=== PATIENT | male | born 1935 | race Caucasian/White ===

== ENCOUNTER 2018-06-11 20:33 | Emergency (ER) | payer MEDICARE, OTHER ==
[2018-06-11 21:26] LABS: BASOPHILS % (AUTO) 0.6 % (0.0-5.0); EOSINOPHILS % (AUTO) 0.4 % (0.0-8.0); HEMATOCRIT 35.6 % (42-54); LYMPHOCYTES % (AUTO) 14.1 % (21.0-51.0); MEAN CORPUSCULAR HGB CONC 34.6 g/dL (32.0-36.0); MEAN CORPUSCULAR VOLUME 95.3 fL (79-99); MONOCYTES % (AUTO) 6.7 % (3.0-13.0); NEUTROPHILS % (AUTO) 78.2 % (40.0-77.0); NUCLEATED RED BLOOD CELLS 0.1 % (0.0-0.19); PLATELET COUNT (AUTO) 170 K/uL (130-400); RED BLOOD CELL COUNT(AUTO) 3.73 MIL/uL (4.50-6.20); RED CELL DISTRIBUTION WIDTH 14.7 % (11.0-15.5); WHITE BLOOD COUNT (AUTO) 9.8 K/uL (4.8-10.8)
[2018-06-11 21:33] LABS: CREATININE 1.1 mg/dL (0.5-1.5); POTASSIUM 3.6 mmol/L (3.5-5.1)
[2018-06-11 21:37] LABS: INR 0.99 (0.85-1.15); PARTIAL THROMBOPLASTIN TIME 27.4 SEC (26.3-35.5); PROTHROMBIN TIME 10.4 SEC (9.6-11.6)
[2018-06-11 21:38] LABS: ALBUMIN 3.6 g/dL (3.5-5.0); BILIRUBIN,TOTAL 0.4 mg/dL (0.2-1.0)
[2018-06-11 22:15] LABS: APPEARANCE,URINE TURBID (CLEAR); BILIRUBIN,URINE MODERATE (NEGATIVE); COLOR,URINE RED (YELLOW); GLUCOSE, URINE (UA) 500 mg/dL (NEGATIVE); KETONES,URINE 15 mg/dL (NEGATIVE); LEUKOCYTE ESTERASE ,URINE MODERATE (NEGATIVE); NITRATE,URINE POSITIVE (NEGATIVE); OCCULT BLOOD,URINE LARGE (NEGATIVE); PH,URINE 6.5 (5.0-8.0); PROTEIN,URINE >=300 (NEGATIVE)
[2018-06-11 22:23] LABS: RBC,URINE >100 /HPF (0-1)
[2018-06-11 22:26] LABS: BACTERIA,URINE Moderate /HPF (None Seen); SQUAMOUS EPITHELIAL CELL,UR 0-2 /HPF (0-2)
[2018-06-11] MEDS ORDERED: LEVOFLOXACIN 500 MG TABLET ONE (22:41)
== END 2018-06-11 23:10 | disposition home or self-care (01) ==
LOC: EDH 20:33
DX: N39.0 Urinary tract infection, site not specified (principal); R33.9 Retention of urine, unspecified; R31.9 Hematuria, unspecified; I10 Essential (primary) hypertension; E11.9 Type 2 diabetes mellitus without complications; I25.10 Atherosclerotic heart disease of native coronary artery without angina pectoris; Z98.890 Other specified postprocedural states
CPT/HCPCS: 36415; 80053; 81001; 85025; 85610; 85730; 87088

== ENCOUNTER 2018-06-12 23:10 | Emergency (ER) | payer MEDICARE, OTHER ==
[2018-06-14] MEDS ORDERED: METF-446 PO (22:00)
[2018-06-14] MEDS ORDERED: SIMV80TA7 PO (22:00)
[2018-06-14] MEDS ORDERED: SAXA5TAB PO (22:00)
[2018-06-14] MEDS ORDERED: TAMS-1 PO (22:00)
[2018-06-14] MEDS ORDERED: DOXA8TAB81 PO (22:00)
[2018-06-14] MEDS ORDERED: AMLO5TAB7 PO (22:00)
[2018-06-14] MEDS ORDERED: ACAR25TA2 PO (22:00)
[2018-06-14] MEDS ORDERED: ALLO100T PO (22:00)
== END 2018-06-13 02:29 | disposition home or self-care (01) ==
LOC: EDH 23:10
DX: T83.091A Other mechanical complication of indwelling urethral catheter, initial encounter (principal); I25.10 Atherosclerotic heart disease of native coronary artery without angina pectoris; E11.9 Type 2 diabetes mellitus without complications; I10 Essential (primary) hypertension; Z98.890 Other specified postprocedural states
CPT/HCPCS: 51701

== ENCOUNTER 2018-06-13 19:54 | Emergency (ER) | payer MEDICARE, OTHER ==
[2018-06-14] MEDS ORDERED: METF-446 PO (22:00)
[2018-06-14] MEDS ORDERED: SIMV80TA7 PO (22:00)
[2018-06-14] MEDS ORDERED: AMLO5TAB7 PO (22:00)
[2018-06-14] MEDS ORDERED: ALLO100T PO (22:00)
[2018-06-14] MEDS ORDERED: SAXA5TAB PO (22:00)
[2018-06-14] MEDS ORDERED: TAMS-1 PO (22:00)
[2018-06-14] MEDS ORDERED: DOXA8TAB81 PO (22:00)
[2018-06-14] MEDS ORDERED: ACAR25TA2 PO (22:00)
== END 2018-06-13 21:18 | disposition home or self-care (01) ==
LOC: EDH 19:54
DX: T83.091A Other mechanical complication of indwelling urethral catheter, initial encounter (principal); R31.9 Hematuria, unspecified; I10 Essential (primary) hypertension; I25.10 Atherosclerotic heart disease of native coronary artery without angina pectoris; E11.9 Type 2 diabetes mellitus without complications; Z98.890 Other specified postprocedural states

== ENCOUNTER 2018-06-14 10:48 | Inpatient (IN) | payer OTHER ==
[~2018-06-14] VITALS: Ht 162.6 cm; Wt 78.5 kg
[2018-06-14 11:23] LABS: BASOPHILS % (AUTO) 0.7 % (0.0-5.0); EOSINOPHILS % (AUTO) 2.1 % (0.0-8.0); HEMATOCRIT 35.5 % (42-54); LYMPHOCYTES % (AUTO) 17.4 % (21.0-51.0); MEAN CORPUSCULAR HEMOGLOBIN 33.3 pg (27.0-33.0); MEAN CORPUSCULAR VOLUME 95.2 fL (79-99); NEUTROPHILS % (AUTO) 71.8 % (40.0-77.0); PLATELET COUNT (AUTO) 181 K/uL (130-400); RED BLOOD CELL COUNT(AUTO) 3.73 MIL/uL (4.50-6.20); RED CELL DISTRIBUTION WIDTH 14.5 % (11.0-15.5); WHITE BLOOD COUNT (AUTO) 8.1 K/uL (4.8-10.8)
[2018-06-14 11:33] LABS: CREATININE 1.4 mg/dL (0.5-1.5); POTASSIUM 3.7 mmol/L (3.5-5.1)
[2018-06-14 11:39] LABS: ALBUMIN 3.5 g/dL (3.5-5.0); BILIRUBIN,TOTAL 0.5 mg/dL (0.2-1.0); TOTAL PROTEIN, SERUM 7.1 g/dL (6.0-8.3)
[2018-06-14 12:23] LABS: INR 0.96 (0.85-1.15); PARTIAL THROMBOPLASTIN TIME 28.7 SEC (26.3-35.5); PROTHROMBIN TIME 10.1 SEC (9.6-11.6)
[2018-06-14 12:25] LABS: APPEARANCE,URINE Turbid (CLEAR); BILIRUBIN,URINE Small (NEGATIVE); COLOR,URINE Red (YELLOW); GLUCOSE, URINE (UA) Negative (NEGATIVE); KETONES,URINE Negative (NEGATIVE); LEUKOCYTE ESTERASE ,URINE Moderate (NEGATIVE); NITRATE,URINE Negative (NEGATIVE); OCCULT BLOOD,URINE Large (NEGATIVE); PROTEIN,URINE POS 2+ (NEGATIVE); UROBILINOGEN,URINE 0.2 mg/dL (0.2-1.0)
[2018-06-14 12:38] LABS: BACTERIA,URINE Rare /HPF (None Seen); RBC,URINE TNTC /HPF (0-1); SQUAMOUS EPITHELIAL CELL,UR Rare /HPF (0-2); WBC,URINE 0-1 /HPF (0-1)
[2018-06-14] MEDS: SODIUM CHLORIDE 0.9% 1000ML 1,000 ML IV SCH ×2 (14:46→15:15)
[2018-06-14] MEDS ORDERED: CEFTRIAXONE SODIUM 1 GM IV SCH (15:00)
[2018-06-14] MEDS ORDERED: DEXTROSE 50%-WATER 50 ML DISP.SYRIN IV PRN (15:00)
[2018-06-14] MEDS ORDERED: GLUCAGON 1MG KIT 1 MG ML IM PRN (15:00)
[2018-06-14] MEDS ORDERED: ONDANSETRON HCL 4 MG/2 ML VIAL IV PRN (15:00)
[2018-06-14] MEDS ORDERED: ACETAMINOPHEN 325 MG TAB PO PRN (15:00)
[2018-06-14] MEDS ORDERED: SODIUM CHLORIDE 0.9% 1000ML 1,000 ML IV ONE (15:48)
[2018-06-14] MEDS ORDERED: LEVOFLOXACIN 500 MG/D5W 100 ML 100 ML ONE (15:48)
[2018-06-14] MEDS: INSULIN HUMULIN R 100 UNIT/ML 3ML SQ SCH ×2 (16:30→21:00)
[2018-06-14] MEDS ORDERED: LEVOFLOXACIN 500 MG TABLET PO ONE (18:00)
[2018-06-14 18:50] VITALS: BP 143/72
[2018-06-14] MEDS ORDERED: GENTAMICIN 80 MG/NS 100 ML PB 100 ML IV PRN (20:15)
[2018-06-14] MEDS ORDERED: SAXA5TAB PO (22:00)
[2018-06-14] MEDS ORDERED: ACAR25TA2 PO (22:00)
[2018-06-14] MEDS ORDERED: AMLO5TAB7 PO (22:00)
[2018-06-14] MEDS ORDERED: TAMS-1 PO (22:00)
[2018-06-14] MEDS ORDERED: ALLO100T PO (22:00)
[2018-06-14] MEDS ORDERED: METF-446 PO (22:00)
[2018-06-14] MEDS ORDERED: SIMV80TA7 PO (22:00)
[2018-06-14] MEDS ORDERED: DOXA8TAB81 PO (22:00)
[2018-06-14] MEDS ORDERED: LACTULOSE 20 GM/30 ML UDCUP ONE (22:01)
[2018-06-15] VITALS (24 sets, daily range): BP systolic 116–195; BP diastolic 55–99
[2018-06-15] MEDS: SODIUM CHLORIDE 0.9% 1000ML 1,000 ML IV SCH ×7 (04:30→21:44)
[2018-06-15 05:31] LABS: BASOPHILS % (AUTO) 0.5 % (0.0-5.0); EOSINOPHILS % (AUTO) 2.9 % (0.0-8.0); HEMATOCRIT 33.4 % (42-54); LYMPHOCYTES % (AUTO) 23.1 % (21.0-51.0); MEAN CORPUSCULAR HGB CONC 34.8 g/dL (32.0-36.0); MONOCYTES % (AUTO) 9.4 % (3.0-13.0); NEUTROPHILS % (AUTO) 64.1 % (40.0-77.0); PLATELET COUNT (AUTO) 154 K/uL (130-400); RED BLOOD CELL COUNT(AUTO) 3.51 MIL/uL (4.50-6.20); WHITE BLOOD COUNT (AUTO) 8.8 K/uL (4.8-10.8)
[2018-06-15 05:41] LABS: CREATININE 1.2 mg/dL (0.5-1.5); POTASSIUM 4.2 mmol/L (3.5-5.1)
[2018-06-15] MEDS: ACARBOSE 25 MG TABLET PO SCH ×3 (07:30→16:40)
[2018-06-15] MEDS: INSULIN HUMULIN R 100 UNIT/ML 3ML SQ SCH ×4 (07:30→21:49)
[2018-06-15] MEDS: METFORMIN HCL 500 MG TABLET PO SCH ×2 (08:00→16:40)
[2018-06-15] MEDS: AMLODIPINE BESYLATE 5 MG TAB PO SCH (09:00)
[2018-06-15] MEDS: SAXAGLIPTIN HCL 5 MG PO SCH (09:00)
[2018-06-15] MEDS: TAMSULOSIN HCL 0.4 MG CAP.ER.24H PO SCH (09:00)
[2018-06-15] MEDS: MORPHINE SULFATE 2 MG/ML 1ML SYG IVP PRN ×2 (12:02→17:16)
[2018-06-15] MEDS ORDERED: IOHEXOL-350 50ML VIAL IV ONE (13:30)
[2018-06-15] MEDS ORDERED: LIDOCAINE HCL 2% JELLY 5 ML ONE (13:39)
[2018-06-15] MEDS ORDERED: LIDOCAINE HCL MPF 1% 5ML VIAL ONE (13:39)
[2018-06-15] MEDS ORDERED: PROPOFOL 10 MG/ML 20ML VIAL IV ONE (13:39)
[2018-06-15] MEDS ORDERED: FENTANYL CITRATE PF 50 MCG/1 ML 5ML AMP IV ONE (13:40)
[2018-06-15] MEDS ORDERED: LEVOFLOXACIN 500 MG/D5W 100 ML 100 ML ONE (14:02)
[2018-06-15] MEDS ORDERED: OPIUM/BELLADONNA ALKALOIDS 1 EACH SUPP.RECT RC ONE (14:58)
[2018-06-15] MEDS ORDERED: MEPERIDINE-PF 25 MG/ML SYG ONE ×2 (15:10→15:22)
[2018-06-15] MEDS ORDERED: HYDRALAZINE HCL 20 MG/ML VIAL ONE (15:23)
[2018-06-15] MEDS: LEVOFLOXACIN 500 MG TABLET PO SCH (16:39)
[2018-06-15] MEDS: FAMOTIDINE 20MG TAB 20 MG TAB PO SCH (16:40)
[2018-06-15] MEDS: DOXAZOSIN MESYLATE 2 MG TABLET PO SCH (16:41)
[2018-06-15] MEDS ORDERED: PHENAZOPYRIDINE HCL 200 MG TABLET PO SCH (17:00)
[2018-06-15] MEDS: ATORVASTATIN CALCIUM 40 MG TABLET PO SCH (21:48)
[2018-06-15] MEDS: ALLOPURINOL 100 MG TABLET PO SCH (21:48)
[2018-06-15] MEDS: ACETAMINOPHEN-CODEINE 300/30MG TAB PO PRN (23:00)
[2018-06-16] VITALS (8 sets, daily range): BP systolic 119–154; BP diastolic 46–64
[2018-06-16 05:53] LABS: BASOPHILS % (AUTO) 0.4 % (0.0-5.0); EOSINOPHILS % (AUTO) 4.2 % (0.0-8.0); HEMATOCRIT 30.7 % (42-54); LYMPHOCYTES % (AUTO) 21.3 % (21.0-51.0); MEAN CORPUSCULAR HEMOGLOBIN 34.1 pg (27.0-33.0); MEAN CORPUSCULAR HGB CONC 35.8 g/dL (32.0-36.0); MEAN CORPUSCULAR VOLUME 95.3 fL (79-99); MONOCYTES % (AUTO) 9.4 % (3.0-13.0); NEUTROPHILS % (AUTO) 64.7 % (40.0-77.0); PLATELET COUNT (AUTO) 163 K/uL (130-400); RED BLOOD CELL COUNT(AUTO) 3.22 MIL/uL (4.50-6.20); RED CELL DISTRIBUTION WIDTH 14.7 % (11.0-15.5); WHITE BLOOD COUNT (AUTO) 8.4 K/uL (4.8-10.8)
[2018-06-16 06:01] LABS: CREATININE 1.2 mg/dL (0.5-1.5); POTASSIUM 3.6 mmol/L (3.5-5.1)
[2018-06-16] MEDS: SODIUM CHLORIDE 0.9% 1000ML 1,000 ML IV SCH ×3 (06:21→17:15)
[2018-06-16] MEDS: ACETAMINOPHEN-CODEINE 300/30MG TAB PO PRN ×2 (06:21→19:46)
[2018-06-16] MEDS: INSULIN HUMULIN R 100 UNIT/ML 3ML SQ SCH ×4 (07:05→21:00)
[2018-06-16] MEDS: METFORMIN HCL 500 MG TABLET PO SCH ×2 (08:46→16:50)
[2018-06-16] MEDS: TAMSULOSIN HCL 0.4 MG CAP.ER.24H PO SCH (08:46)
[2018-06-16] MEDS: DOXAZOSIN MESYLATE 2 MG TABLET PO SCH (08:46)
[2018-06-16] MEDS: ACARBOSE 25 MG TABLET PO SCH ×3 (08:46→16:50)
[2018-06-16] MEDS: AMLODIPINE BESYLATE 5 MG TAB PO SCH (08:46)
[2018-06-16] MEDS: OXYBUTYNIN 5 MG TAB.SR.24H PO SCH (08:47)
[2018-06-16] MEDS: FAMOTIDINE 20MG TAB 20 MG TAB PO SCH (08:47)
[2018-06-16] MEDS: SAXAGLIPTIN HCL 5 MG PO SCH (08:49)
[2018-06-16] MEDS: LEVOFLOXACIN 500 MG TABLET PO SCH (16:49)
[2018-06-16] MEDS: ATORVASTATIN CALCIUM 40 MG TABLET PO SCH (22:01)
[2018-06-16] MEDS: ALLOPURINOL 100 MG TABLET PO SCH (22:01)
[2018-06-17] VITALS: BP 157/68
[2018-06-17] MEDS: MORPHINE SULFATE 2 MG/ML 1ML SYG IVP PRN ×2 (00:50→12:49)
[2018-06-17] MEDS: SODIUM CHLORIDE 0.9% 1000ML 1,000 ML IV SCH ×6 (02:18→22:26)
[2018-06-17] MEDS: ACETAMINOPHEN-CODEINE 300/30MG TAB PO PRN ×5 (03:17→23:28)
[2018-06-17 04:00] VITALS: BP 163/68
[2018-06-17 05:55] LABS: BASOPHILS % (AUTO) 0.5 % (0.0-5.0); EOSINOPHILS % (AUTO) 4.8 % (0.0-8.0); HEMATOCRIT 31.3 % (42-54); LYMPHOCYTES % (AUTO) 19.5 % (21.0-51.0); MEAN CORPUSCULAR HEMOGLOBIN 33.2 pg (27.0-33.0); MEAN CORPUSCULAR HGB CONC 34.9 g/dL (32.0-36.0); MONOCYTES % (AUTO) 7.8 % (3.0-13.0); NEUTROPHILS % (AUTO) 67.4 % (40.0-77.0); PLATELET COUNT (AUTO) 137 K/uL (130-400); RED CELL DISTRIBUTION WIDTH 14.7 % (11.0-15.5)
[2018-06-17 06:15] LABS: ALBUMIN 2.5 g/dL (3.5-5.0); BILIRUBIN,TOTAL 0.4 mg/dL (0.2-1.0); CREATININE 1.1 mg/dL (0.5-1.5); POTASSIUM 3.5 mmol/L (3.5-5.1); TOTAL PROTEIN, SERUM 5.6 g/dL (6.0-8.3)
[2018-06-17] MEDS: INSULIN HUMULIN R 100 UNIT/ML 3ML SQ SCH ×4 (06:54→21:00)
[2018-06-17] MEDS: ACARBOSE 25 MG TABLET PO SCH ×3 (07:01→16:56)
[2018-06-17 08:00] VITALS: BP 134/58
[2018-06-17] MEDS: TAMSULOSIN HCL 0.4 MG CAP.ER.24H PO SCH (08:03)
[2018-06-17] MEDS: METFORMIN HCL 500 MG TABLET PO SCH ×2 (08:03→16:56)
[2018-06-17] MEDS: OXYBUTYNIN 5 MG TAB.SR.24H PO SCH (08:03)
[2018-06-17] MEDS: DOXAZOSIN MESYLATE 2 MG TABLET PO SCH (08:03)
[2018-06-17] MEDS: FAMOTIDINE 20MG TAB 20 MG TAB PO SCH (08:03)
[2018-06-17] MEDS: AMLODIPINE BESYLATE 5 MG TAB PO SCH (08:06)
[2018-06-17] MEDS: SAXAGLIPTIN HCL 5 MG PO SCH (08:07)
[2018-06-17 11:00] VITALS: BP 141/59
[2018-06-17 16:00] VITALS: BP 136/57
[2018-06-17] MEDS: LEVOFLOXACIN 500 MG TABLET PO SCH (16:04)
[2018-06-17] MEDS: ATORVASTATIN CALCIUM 40 MG TABLET PO SCH (19:37)
[2018-06-17] MEDS: ALLOPURINOL 100 MG TABLET PO SCH (19:37)
[2018-06-17 20:35] VITALS: BP 132/51
[2018-06-17] MEDS: LACTULOSE 20 GM/30 ML UDCUP PO PRN (23:28)
[2018-06-18] VITALS (7 sets, daily range): BP systolic 128–158; BP diastolic 49–71
[2018-06-18] MEDS: INSULIN HUMULIN R 100 UNIT/ML 3ML SQ SCH ×3 (06:06→20:36)
[2018-06-18 06:13] LABS: BASOPHILS % (AUTO) 0.5 % (0.0-5.0); EOSINOPHILS % (AUTO) 5.9 % (0.0-8.0); HEMATOCRIT 30.7 % (42-54); LYMPHOCYTES % (AUTO) 20.8 % (21.0-51.0); MEAN CORPUSCULAR HEMOGLOBIN 33.8 pg (27.0-33.0); MEAN CORPUSCULAR HGB CONC 35.6 g/dL (32.0-36.0); MONOCYTES % (AUTO) 8.3 % (3.0-13.0); NEUTROPHILS % (AUTO) 64.5 % (40.0-77.0); PLATELET COUNT (AUTO) 163 K/uL (130-400); RED BLOOD CELL COUNT(AUTO) 3.23 MIL/uL (4.50-6.20); RED CELL DISTRIBUTION WIDTH 14.8 % (11.0-15.5); WHITE BLOOD COUNT (AUTO) 8.9 K/uL (4.8-10.8)
[2018-06-18 06:26] LABS: CREATININE 1.1 mg/dL (0.5-1.5); POTASSIUM 3.6 mmol/L (3.5-5.1)
[2018-06-18] MEDS: ACARBOSE 25 MG TABLET PO SCH ×3 (07:05→17:56)
[2018-06-18] MEDS: FAMOTIDINE 20MG TAB 20 MG TAB PO SCH (07:14)
[2018-06-18] MEDS: AMLODIPINE BESYLATE 5 MG TAB PO SCH (07:14)
[2018-06-18] MEDS: TAMSULOSIN HCL 0.4 MG CAP.ER.24H PO SCH (07:15)
[2018-06-18] MEDS: ACETAMINOPHEN-CODEINE 300/30MG TAB PO PRN ×3 (07:15→20:47)
[2018-06-18] MEDS: DOXAZOSIN MESYLATE 2 MG TABLET PO SCH (07:15)
[2018-06-18] MEDS: OXYBUTYNIN 5 MG TAB.SR.24H PO SCH (07:15)
[2018-06-18] MEDS: METFORMIN HCL 500 MG TABLET PO SCH ×2 (07:16→17:57)
[2018-06-18] MEDS: SAXAGLIPTIN HCL 5 MG PO SCH (09:00)
[2018-06-18] MEDS: MORPHINE SULFATE 2 MG/ML 1ML SYG IVP PRN (09:54)
[2018-06-18] MEDS: SODIUM CHLORIDE 0.9% 1000ML 1,000 ML IV SCH ×2 (14:28→17:58)
[2018-06-18] MEDS: LEVOFLOXACIN 500 MG TABLET PO SCH (17:58)
[2018-06-18] MEDS: ALLOPURINOL 100 MG TABLET PO SCH (20:38)
[2018-06-18] MEDS: ATORVASTATIN CALCIUM 40 MG TABLET PO SCH (20:38)
[2018-06-19 03:00] VITALS: BP 160/63
[2018-06-19] MEDS: SODIUM CHLORIDE 0.9% 1000ML 1,000 ML IV SCH ×3 (03:57→14:46)
[2018-06-19] MEDS: ACARBOSE 25 MG TABLET PO SCH ×3 (06:42→17:28)
[2018-06-19] MEDS: INSULIN HUMULIN R 100 UNIT/ML 3ML SQ SCH ×4 (06:43→22:02)
[2018-06-19 08:00] VITALS: BP_SYST 149; BP_SYST 168; BP_DIAS 64; BP_DIAS 67
[2018-06-19] MEDS: SAXAGLIPTIN HCL 5 MG PO SCH (08:11)
[2018-06-19] MEDS: FAMOTIDINE 20MG TAB 20 MG TAB PO SCH (09:26)
[2018-06-19] MEDS: HYDROCODONE/ACETAMINOPHEN 5/325 MG TAB PO PRN ×2 (09:27→17:28)
[2018-06-19] MEDS: OXYBUTYNIN 5 MG TAB.SR.24H PO SCH (09:28)
[2018-06-19] MEDS: AMLODIPINE BESYLATE 5 MG TAB PO SCH (09:28)
[2018-06-19] MEDS: DOXAZOSIN MESYLATE 2 MG TABLET PO SCH (09:28)
[2018-06-19] MEDS: TAMSULOSIN HCL 0.4 MG CAP.ER.24H PO SCH (09:28)
[2018-06-19] MEDS: METFORMIN HCL 500 MG TABLET PO SCH ×2 (09:44→17:27)
[2018-06-19 11:49] VITALS: BP 147/61
[2018-06-19 16:47] VITALS: BP 149/61
[2018-06-19] MEDS: LEVOFLOXACIN 500 MG TABLET PO SCH (17:27)
[2018-06-19 19:00] VITALS: BP 141/59
[2018-06-19] MEDS: ATORVASTATIN CALCIUM 40 MG TABLET PO SCH (21:39)
[2018-06-19] MEDS: ALLOPURINOL 100 MG TABLET PO SCH (21:39)
[2018-06-19] MEDS: ACETAMINOPHEN-CODEINE 300/30MG TAB PO PRN (22:14)
[2018-06-19] MEDS: MORPHINE SULFATE 2 MG/ML 1ML SYG IVP PRN (22:55)
[2018-06-19 23:00] VITALS: BP 152/57
[2018-06-20] MEDS ORDERED: KETOROLAC TROMETHAMINE 30MG/ML IV PRN
[2018-06-20 03:00] VITALS: BP 142/55
[2018-06-20 05:35] LABS: HEMATOCRIT 29.5 % (42-54); MEAN CORPUSCULAR HEMOGLOBIN 33.1 pg (27.0-33.0); MEAN CORPUSCULAR HGB CONC 35.2 g/dL (32.0-36.0); MEAN CORPUSCULAR VOLUME 94.1 fL (79-99); PLATELET COUNT (AUTO) 182 K/uL (130-400); RED BLOOD CELL COUNT(AUTO) 3.14 MIL/uL (4.50-6.20); RED CELL DISTRIBUTION WIDTH 14.3 % (11.0-15.5); WHITE BLOOD COUNT (AUTO) 8.2 K/uL (4.8-10.8)
[2018-06-20 05:45] LABS: CREATININE 1.2 mg/dL (0.5-1.5); POTASSIUM 3.2 mmol/L (3.5-5.1)
[2018-06-20 05:46] LABS: INR 1.02 (0.85-1.15); PROTHROMBIN TIME 10.7 SEC (9.6-11.6)
[2018-06-20] MEDS: ACARBOSE 25 MG TABLET PO SCH ×3 (06:35→17:15)
[2018-06-20] MEDS: INSULIN HUMULIN R 100 UNIT/ML 3ML SQ SCH ×4 (06:36→21:00)
[2018-06-20 07:30] VITALS: BP 135/61
[2018-06-20] MEDS: DOXAZOSIN MESYLATE 2 MG TABLET PO SCH (08:46)
[2018-06-20] MEDS: OXYBUTYNIN 5 MG TAB.SR.24H PO SCH (08:46)
[2018-06-20] MEDS: AMLODIPINE BESYLATE 5 MG TAB PO SCH (08:46)
[2018-06-20] MEDS: SODIUM CHLORIDE 0.9% 1000ML 1,000 ML IV SCH ×2 (08:46→10:46)
[2018-06-20] MEDS: TAMSULOSIN HCL 0.4 MG CAP.ER.24H PO SCH (08:46)
[2018-06-20] MEDS: FAMOTIDINE 20MG TAB 20 MG TAB PO SCH (08:46)
[2018-06-20] MEDS: METFORMIN HCL 500 MG TABLET PO SCH ×2 (08:46→17:15)
[2018-06-20] MEDS: SAXAGLIPTIN HCL 5 MG PO SCH (09:00)
[2018-06-20 11:00] VITALS: BP 143/50
[2018-06-20] MEDS: LACTULOSE 20 GM/30 ML UDCUP PO PRN (12:28)
[2018-06-20 16:00] VITALS: BP 137/57
[2018-06-20] MEDS: LEVOFLOXACIN 500 MG TABLET PO SCH (16:09)
[2018-06-20 19:35] VITALS: BP 146/59
[2018-06-20 19:38] VITALS: BP 146/59
[2018-06-20] MEDS: ALLOPURINOL 100 MG TABLET PO SCH (21:11)
[2018-06-20] MEDS: FERROUS SULFATE 325 MG TABLET.DR PO SCH (21:12)
[2018-06-20] MEDS: ATORVASTATIN CALCIUM 40 MG TABLET PO SCH (21:12)
[2018-06-21 00:38] VITALS: BP 164/71
[2018-06-21] MEDS: ACETAMINOPHEN-CODEINE 300/30MG TAB PO PRN ×2 (00:41→12:57)
[2018-06-21 04:40] VITALS: BP 156/65
[2018-06-21 05:43] LABS: HEMATOCRIT 29.9 % (42-54); MEAN CORPUSCULAR HGB CONC 36.4 g/dL (32.0-36.0); MEAN CORPUSCULAR VOLUME 93.4 fL (79-99); PLATELET COUNT (AUTO) 221 K/uL (130-400); RED BLOOD CELL COUNT(AUTO) 3.21 MIL/uL (4.50-6.20); RED CELL DISTRIBUTION WIDTH 14.3 % (11.0-15.5); WHITE BLOOD COUNT (AUTO) 7.7 K/uL (4.8-10.8)
[2018-06-21 06:25] LABS: CREATININE 1.1 mg/dL (0.5-1.5); POTASSIUM 3.2 mmol/L (3.5-5.1)
[2018-06-21] MEDS: ACARBOSE 25 MG TABLET PO SCH ×3 (06:39→16:15)
[2018-06-21] MEDS: INSULIN HUMULIN R 100 UNIT/ML 3ML SQ SCH ×3 (06:39→16:10)
[2018-06-21 07:30] VITALS: BP 163/68
[2018-06-21] MEDS: TAMSULOSIN HCL 0.4 MG CAP.ER.24H PO SCH (08:41)
[2018-06-21] MEDS: FAMOTIDINE 20MG TAB 20 MG TAB PO SCH (08:41)
[2018-06-21] MEDS: AMLODIPINE BESYLATE 5 MG TAB PO SCH (08:41)
[2018-06-21] MEDS: OXYBUTYNIN 5 MG TAB.SR.24H PO SCH (08:41)
[2018-06-21] MEDS: FERROUS SULFATE 325 MG TABLET.DR PO SCH (08:41)
[2018-06-21] MEDS: DOXAZOSIN MESYLATE 2 MG TABLET PO SCH (08:41)
[2018-06-21] MEDS: METFORMIN HCL 500 MG TABLET PO SCH ×2 (08:41→16:16)
[2018-06-21] MEDS: SAXAGLIPTIN HCL 5 MG PO SCH (08:44)
[2018-06-21 11:00] VITALS: BP 142/51
[2018-06-21] MEDS ORDERED: FERR324T4 PO (11:47)
[2018-06-21 16:00] VITALS: BP 134/59
[2018-06-21] MEDS: LEVOFLOXACIN 500 MG TABLET PO SCH (16:15)
[2018-06-21] MEDS ORDERED: POTASSIUM CHLORIDE 10% ELIXIR 20 MEQ/15 ML UDCUP PO SCH (16:26)
== END 2018-06-21 18:18 | DRG 669 ==
LOC: EDH 10:48 → EDHIP 14:46 → OBSVTOIN 14:46 → 3CH 19:07
PROVIDERS: ADMIT Hospitalist; ATTEND Hospitalist
PROC: BT141ZZ Fluoroscopy of Kidneys, Ureters and Bladder using Low Osmolar Contrast (ICD-10-PCS; 2018-06-15)
PROC: 0TBB8ZX Excision of Bladder, Via Natural or Artificial Opening Endoscopic, Diagnostic (ICD-10-PCS; 2018-06-15)
PROC: 0TBB8ZZ Excision of Bladder, Via Natural or Artificial Opening Endoscopic (ICD-10-PCS; principal; 2018-06-15 14:04)
PROC: 0T5B8ZZ Destruction of Bladder, Via Natural or Artificial Opening Endoscopic (ICD-10-PCS; 2018-06-15 14:04)
PROC: 0TCB8ZZ Extirpation of Matter from Bladder, Via Natural or Artificial Opening Endoscopic (ICD-10-PCS; 2018-06-15 14:04)
DX: D49.4 Neoplasm of unspecified behavior of bladder (principal); N39.0 Urinary tract infection, site not specified; R31.0 Gross hematuria; E11.9 Type 2 diabetes mellitus without complications; I10 Essential (primary) hypertension; R33.9 Retention of urine, unspecified; Z66 Do not resuscitate; I71.4 Abdominal aortic aneurysm, without rupture; K57.90 Diverticulosis of intestine, part unspecified, without perforation or abscess without bleeding; I25.10 Atherosclerotic heart disease of native coronary artery without angina pectoris; K76.89 Other specified diseases of liver; N40.0 Benign prostatic hyperplasia without lower urinary tract symptoms; Z72.0 Tobacco use; Z79.4 Long term (current) use of insulin; Z95.5 Presence of coronary angioplasty implant and graft; Z82.49 Family history of ischemic heart disease and other diseases of the circulatory system; Z88.8 Allergy status to other drugs, medicaments and biological substances
CPT/HCPCS: 36415; 74176; 74420; 80048; 80053; 81001; 82550; 82948; 85025; 85027; 85610; 85730; 88305; 93005; 97039; A4354; C1758; J0360; J1815; J1885; J1956; J2175; J2704; J3010; J3490; J7030; Q9967

== ENCOUNTER → 2019-02-22 | Outpatient (CLI) | payer MEDICARE, BC ==
[~2019-02-22] MED LIST: ACAR25TA2 PO; ALLO100T PO; AMLO5TAB9 PO; DOXA8TAB81 PO; FERR324T4 PO; METF-446 PO; SAXA5TAB PO; SIMV80TA91 PO; TAMS-1 PO
== END | disposition home or self-care (01) ==
LOC: SHCH 14:22
PROVIDERS: ATTEND Internal Medicine Cardiovascular Disease
DX: I65.23 Occlusion and stenosis of bilateral carotid arteries (principal)
CPT/HCPCS: 93880

== ENCOUNTER → 2019-03-19 | Outpatient (CLI) | payer MEDICARE | END | disposition home or self-care (01) | LOC: SHCH 10:35 | PROVIDERS: ATTEND Internal Medicine Cardiovascular Disease | DX: I11.9 Hypertensive heart disease without heart failure (principal); I35.8 Other nonrheumatic aortic valve disorders | CPT/HCPCS: 93306 ==

== ENCOUNTER → 2019-04-09 | Outpatient (CLI) | payer MEDICARE ==
[~2019-04-09] MED LIST changes: +IOHEXOL-350 75 ML VIAL IV ONE
== END | disposition home or self-care (01) ==
LOC: RAH 07:36
PROVIDERS: ATTEND Internal Medicine Cardiovascular Disease
DX: M47.812 Spondylosis without myelopathy or radiculopathy, cervical region (principal); I65.23 Occlusion and stenosis of bilateral carotid arteries; I67.2 Cerebral atherosclerosis; I25.10 Atherosclerotic heart disease of native coronary artery without angina pectoris; Z95.5 Presence of coronary angioplasty implant and graft
CPT/HCPCS: 70496; 70498; Q9967

== ENCOUNTER → 2019-06-07 | Outpatient (CLI) | payer MEDICARE ==
[~2019-06-07] VITALS: Ht 165.1 cm; Wt 79.7 kg
[~2019-06-07] MED LIST changes: +ACAR50TA PO; +ALOG12.52 PO; +ASPI-1181 PO; +CLOP75TA32 PO; +DOCU50CA15 PO; +DOXA4TAB3 PO; +FERR325T22 PO; +FINA5TAB41 PO; +INSU100V12 SQ; -IOHEXOL-350 75 ML VIAL IV ONE; +[UNRECOGNIZED DRUG - OTHER] PO
[2019-06-07 14:09] VITALS: BP 152/56
[2019-06-07 14:50] LABS: APPEARANCE,URINE Clear (CLEAR); BILIRUBIN,URINE Negative (NEGATIVE); COLOR,URINE Yellow (YELLOW); GLUCOSE, URINE (UA) Negative (NEGATIVE); KETONES,URINE Negative (NEGATIVE); LEUKOCYTE ESTERASE ,URINE Negative (NEGATIVE); NITRATE,URINE Negative (NEGATIVE); OCCULT BLOOD,URINE Negative (NEGATIVE); PROTEIN,URINE Trace mg/dL (NEGATIVE); UROBILINOGEN,URINE 0.2 mg/dL (0.2-1.0)
[2019-06-07 14:51] LABS: BASOPHILS % (AUTO) 0.6 % (0.0-5.0); EOSINOPHILS % (AUTO) 2.5 % (0.0-8.0); HEMATOCRIT 37.4 % (42-54); LYMPHOCYTES % (AUTO) 22.1 % (21.0-51.0); MEAN CORPUSCULAR HEMOGLOBIN 34.3 pg (27.0-33.0); MEAN CORPUSCULAR HGB CONC 35.3 g/dL (32.0-36.0); MEAN CORPUSCULAR VOLUME 97.1 fL (79-99); MONOCYTES % (AUTO) 8.2 % (3.0-13.0); NEUTROPHILS % (AUTO) 66.6 % (40.0-77.0); PLATELET COUNT (AUTO) 193 K/uL (130-400); RED BLOOD CELL COUNT(AUTO) 3.85 MIL/uL (4.50-6.20); RED CELL DISTRIBUTION WIDTH 13.5 % (11.0-15.5); WHITE BLOOD COUNT (AUTO) 8.4 K/uL (4.8-10.8)
[2019-06-07 15:07] LABS: CREATININE 1.1 mg/dL (0.5-1.5); POTASSIUM 3.8 mmol/L (3.5-5.1)
[2019-06-07 15:10] LABS: INR 0.91 (0.85-1.15); PARTIAL THROMBOPLASTIN TIME 27.9 SEC (26.3-35.5); PROTHROMBIN TIME 9.6 SEC (9.6-11.6)
[2019-06-07 15:14] LABS: BACTERIA,URINE None Seen /HPF (None Seen); MUCUS,URINE Few LPF (None Seen); RBC,URINE 0-1 /HPF (0-1); SQUAMOUS EPITHELIAL CELL,UR 0-2 /HPF (0-2); WBC,URINE 0-1 /HPF (0-1)
== END | disposition home or self-care (01) ==
LOC: DAH 10:00 → EDSTATUS 13:00
PROVIDERS: ATTEND Internal Medicine Cardiovascular Disease
DX: Z01.818 Encounter for other preprocedural examination (principal); I65.23 Occlusion and stenosis of bilateral carotid arteries; J98.11 Atelectasis
CPT/HCPCS: 36415; 71045; 80048; 81001; 85025; 85610; 85730; 86850; 86900; 86901; 86922; 93005

== ENCOUNTER 2019-07-04 08:00 | Inpatient (IN) | payer MEDICARE ==
[~2019-07-04] VITALS: Ht 167.6 cm; Wt 82.7 kg
[~2019-07-04 08:00] MED LIST changes: -ACAR25TA2 PO; -DOXA8TAB81 PO; -FERR324T4 PO; -SAXA5TAB PO; -TAMS-1 PO; -[UNRECOGNIZED DRUG - OTHER] PO
[2019-07-04 09:00] VITALS: BP 167/76
[2019-07-04 09:02] LABS: BASOPHILS % (AUTO) 0.8 % (0.0-5.0); EOSINOPHILS % (AUTO) 4.6 % (0.0-8.0); HEMATOCRIT 35.7 % (42-54); LYMPHOCYTES % (AUTO) 23.2 % (21.0-51.0); MEAN CORPUSCULAR HEMOGLOBIN 33.9 pg (27.0-33.0); MEAN CORPUSCULAR HGB CONC 34.6 g/dL (32.0-36.0); MEAN CORPUSCULAR VOLUME 97.8 fL (79-99); MONOCYTES % (AUTO) 9.1 % (3.0-13.0); NEUTROPHILS % (AUTO) 62.3 % (40.0-77.0); PLATELET COUNT (AUTO) 181 K/uL (130-400); RED BLOOD CELL COUNT(AUTO) 3.65 MIL/uL (4.50-6.20); RED CELL DISTRIBUTION WIDTH 13.9 % (11.0-15.5); WHITE BLOOD COUNT (AUTO) 5.8 K/uL (4.8-10.8)
[2019-07-04 09:08] LABS: APPEARANCE,URINE Clear (CLEAR); BILIRUBIN,URINE Negative (NEGATIVE); COLOR,URINE Yellow (YELLOW); GLUCOSE, URINE (UA) Negative (NEGATIVE); KETONES,URINE Negative (NEGATIVE); LEUKOCYTE ESTERASE ,URINE Negative (NEGATIVE); NITRATE,URINE Negative (NEGATIVE); OCCULT BLOOD,URINE Negative (NEGATIVE); PROTEIN,URINE POS 2+ mg/dL (NEGATIVE); UROBILINOGEN,URINE 0.2 mg/dL (0.2-1.0)
[2019-07-04 09:10] LABS: CREATININE 1.1 mg/dL (0.5-1.5); POTASSIUM 3.8 mmol/L (3.5-5.1)
[2019-07-04 09:20] LABS: INR 0.94 (0.85-1.15); PROTHROMBIN TIME 9.9 SEC (9.6-11.6)
[2019-07-04 10:05] LABS: BACTERIA,URINE Rare /HPF (None Seen); RBC,URINE 0-1 /HPF (0-1); SQUAMOUS EPITHELIAL CELL,UR Rare /HPF (0-2); WBC,URINE 0-1 /HPF (0-1)
[2019-07-04] MEDS ORDERED: VITAMIN C WITH ZINC PO (10:59)
--- NOTE | 2019-07-08 13:41 | NUR ---
ROXANNE JESSICA AWARE OF ABNORMAL LABS, NO NEW ORDERS, AT THIS TIME
[2019-07-09] VITALS (49 sets, daily range): BP systolic 114–167; BP diastolic 42–110
--- NOTE | 2019-07-09 06:12 | NUR ---
POTENTIAL FOR INFECTION: SHAVED FROM CHEST AREA TO UPPER BILATERAL KNEE PER GRETEL SHRESTHA, FOLLOWED BY WIPING WITH ELI: 2% CHLORHEXIDINE GLUCONATE CLOTH PATIENTS PRE-OP SKIN PREP.
[2019-07-09] MEDS ORDERED: SODIUM CHLORIDE 0.9% 1000ML 1,000 ML IV ONE (06:14)
[2019-07-09] MEDS ORDERED: BACITRACIN 50,000 UNIT VIAL ONE (06:59)
[2019-07-09] MEDS ORDERED: HEPARIN SODIUM 1000UNIT/ML 10ML VIAL ONE (07:04)
[2019-07-09] MEDS ORDERED: IODIXANOL 320 MG/ML 100 ML VIAL ONE (07:05)
[2019-07-09] MEDS ORDERED: ONDANSETRON HCL 4 MG/2 ML VIAL ONE (07:22)
[2019-07-09] MEDS ORDERED: ATROPINE SULFATE 0.1 MG/ML 10 ML SYG IVP ONE (07:22)
[2019-07-09] MEDS ORDERED: LIDOCAINE HCL 1% 20 ML VIAL ONE (07:22)
[2019-07-09] MEDS ORDERED: PROPOFOL 10 MG/ML 20ML VIAL IV ONE (07:22)
[2019-07-09] MEDS ORDERED: NEOSTIGMINE 5MG/5ML SYR IV ONE (07:23)
[2019-07-09] MEDS ORDERED: GLYCOPYRROLATE 0.2 MG/ML 5 ML VIAL ONE ×2 (07:23→09:05)
[2019-07-09] MEDS ORDERED: FENTANYL CITRATE PF 50 MCG/1 ML 2ML VIAL ONE (07:24)
[2019-07-09] MEDS ORDERED: MIDAZOLAM HCL 1 MG/ML 2ML VIAL ONE (07:24)
[2019-07-09] MEDS ORDERED: ROCURONIUM BROMIDE 10MG/1ML 5ML VL ONE (07:24)
[2019-07-09] MEDS ORDERED: PHENYLEPHRINE HCL 10 MG/ML 1ML VIAL IV ONE (07:42)
[2019-07-09] MEDS ORDERED: VANCOMYCIN 1GM+NS 250ML 250 ML IV ONE ×2 (07:45→20:42)
[2019-07-09] MEDS ORDERED: EPINEPHRINE 1 MG/ML AMPULE ONE (08:28)
[2019-07-09] MEDS ORDERED: NITROGLYCERIN 50 MG/D5% WATER 250 BOT IV PRN (09:15)
[2019-07-09] MEDS ORDERED: NOREPINEPHRINE 4MG/NS 250ML 250 ML IV PRN (09:15)
[2019-07-09] MEDS ORDERED: GLUCAGON 1MG KIT 1 MG ML IM PRN ×2 (09:15→14:30)
[2019-07-09] MEDS ORDERED: DEXTROSE 50%-WATER 50 ML DISP.SYRIN IV PRN ×2 (09:15→14:30)
--- NOTE | 2019-07-09 09:32 | NUR ---
ADMIT Easy to arouse, surgical dressing to right lateral neck clean and dry. No hematoma to right groin noted. Pulses palpable. Call light within reach.
[2019-07-09] MEDS: INSULIN HUMULIN R 100 UNIT/ML 3ML SQ SCH ×5 (11:37→21:00)
[2019-07-09] MEDS: ACETAMINOPHEN-CODEINE 300/30MG TAB PO PRN (11:41)
--- NOTE | 2019-07-09 13:20 | NUR ---
BENCHMARK Flori Cid NP in t see pt, plan of care discussed.
[2019-07-09] MEDS ORDERED: LIDOCAINE HCL-MPF 1% 2ML VIAL IV PRN (14:30)
[2019-07-09] MEDS ORDERED: POTASSIUM CHLORIDE 20MEQ/100ML 100 ML IV PRN (14:30)
[2019-07-09] MEDS ORDERED: POTASSIUM CHLORIDE 10% ELIXIR 20 MEQ/15 ML UDCUP PO PRN (14:30)
[2019-07-09] MEDS ORDERED: POTASSIUM CHLORIDE 20 MEQ ERTAB PO PRN (14:30)
--- NOTE | 2019-07-09 15:30 | NUR ---
BLADDER SCAN 258cc noted in bladder scan, no urge to void, asymptomatic.
[2019-07-09] MEDS ORDERED: SODIUM CHLORIDE 0.9% 1000ML 1,000 ML IV SCH (18:00)
[2019-07-09] MEDS ORDERED: VANCOMYCIN 1GM+NS 250ML 250 ML IV SCH (19:30)
[2019-07-09] MEDS: FERROUS SULFATE 325 MG TABLET.DR PO SCH (20:50)
[2019-07-09] MEDS ORDERED: ALLOPURINOL 100 MG TABLET PO SCH (21:00)
[2019-07-09] MEDS ORDERED: SIMVASTATIN 20 MG TABLET PO SCH (21:00)
[2019-07-09] MEDS ORDERED: ASPIRIN 81 MG EC TAB PO SCH (21:00)
[2019-07-09] MEDS ORDERED: DOCUSATE SODIUM 100 MG CAP PO SCH (21:00)
[2019-07-09] MEDS ORDERED: FINASTERIDE 5 MG TABLET PO SCH (21:00)
[2019-07-09] MEDS ORDERED: CLOPIDOGREL BISULFATE 75 MG TAB PO SCH (21:00)
[2019-07-09] MEDS ORDERED: ACARBOSE 50 MG PO SCH (21:00)
[2019-07-09] MEDS ORDERED: DOXAZOSIN MESYLATE 2 MG TABLET PO SCH (21:00)
[2019-07-09] MEDS: INSULIN GLARGINE 100 UNITS/ML 10 ML VIAL SQ SCH (22:11)
[2019-07-10] VITALS (46 sets, daily range): BP systolic 91–188; BP diastolic 29–85
[2019-07-10 03:38] LABS: HEMATOCRIT 31.7 % (42-54); MEAN CORPUSCULAR HGB CONC 34.3 g/dL (32.0-36.0); PLATELET COUNT (AUTO) 158 K/uL (130-400); RED BLOOD CELL COUNT(AUTO) 3.21 MIL/uL (4.50-6.20); RED CELL DISTRIBUTION WIDTH 14.2 % (11.0-15.5); WHITE BLOOD COUNT (AUTO) 9.6 K/uL (4.8-10.8)
[2019-07-10 03:55] LABS: CREATININE 1.3 mg/dL (0.5-1.5); POTASSIUM 3.9 mmol/L (3.5-5.1)
[2019-07-10] MEDS ORDERED: SODIUM CHLORIDE 0.9% 1000ML 1,000 ML IV SCH (06:00)
[2019-07-10] MEDS: INSULIN HUMULIN R 100 UNIT/ML 3ML SQ SCH ×4 (06:29→11:30)
[2019-07-10] MEDS ORDERED: ASCORBIC ACID 500 MG TAB PO SCH (09:00)
[2019-07-10] MEDS ORDERED: ALOGLIPTIN 12.5 MG PO SCH (09:00)
[2019-07-10] MEDS ORDERED: AMLODIPINE BESYLATE 5 MG TAB PO SCH (09:00)
[2019-07-10] MEDS ORDERED: ACARBOSE 25 MG PO SCH (09:00)
[2019-07-10] MEDS: FERROUS SULFATE 325 MG TABLET.DR PO SCH (09:24)
[2019-07-10] MEDS: ACETAMINOPHEN-CODEINE 300/30MG TAB PO PRN (09:31)
[2019-07-10] MEDS: INSULIN GLARGINE 100 UNITS/ML 10 ML VIAL SQ SCH (09:33)
--- NOTE | 2019-07-10 09:45 | NUR ---
[facility] Dallas Gibson PA in to see patient updates given plan of care discussed.
--- NOTE | 2019-07-10 14:36 | NUR ---
DC PLAN VISITED WITH PATIENT. PATIENT LIVES WITH SPOUSE. INDEPENDENT ABLE TO PERFORM ADL'S. PATIENT HAS NO SERVICES OR DME'S. FEELS SAFE TO RETURN HOME. Addendum: 07/10/19 at 1441 by AIDAN HENSLEY RN CM Amended: Links added.
--- NOTE | 2019-07-10 15:35 | NUR ---
DISCHARGE Patient discharged as ordered. Instructions given, verbalized understanding. Taken to lobby by wheelchair, in no distress. All belongings given to pt's sister at bedside. IV catheter discontinued, intact upon removal. Appointment given with Dr. Diaz on July 25, 2019 at 1100.
== END 2019-07-10 15:35 | disposition home or self-care (01) | DRG 36 ==
LOC: EDSTATUS 08:00 → DAHIP 07-09 05:31 → 2CH 07-09 09:40
PROVIDERS: ADMIT Internal Medicine Critical Care Medicine; ATTEND Internal Medicine Critical Care Medicine
PROC: 037K3DZ Dilation of Right Internal Carotid Artery with Intraluminal Device, Percutaneous Approach (ICD-10-PCS; principal; 2019-07-09)
PROC: B3131ZZ Fluoroscopy of Right Common Carotid Artery using Low Osmolar Contrast (ICD-10-PCS; 2019-07-09)
DX: I65.23 Occlusion and stenosis of bilateral carotid arteries (principal); C67.9 Malignant neoplasm of bladder, unspecified; E11.51 Type 2 diabetes mellitus with diabetic peripheral angiopathy without gangrene; E78.5 Hyperlipidemia, unspecified; I10 Essential (primary) hypertension; I25.10 Atherosclerotic heart disease of native coronary artery without angina pectoris; M10.9 Gout, unspecified; M19.90 Unspecified osteoarthritis, unspecified site; Z79.4 Long term (current) use of insulin; Z85.51 Personal history of malignant neoplasm of bladder; Z95.5 Presence of coronary angioplasty implant and graft
CPT/HCPCS: 36415; 37215; 71045; 80048; 81001; 82948; 85025; 85027; 85610; 85730; 86850; 86900; 86901; 86922; 93005; C1725; C1769; G0378; J0171; J0461; J1644; J1815; J2250; J2370; J2405; J2704; J2710; J3010; J3370; J3490; J7030; Q9967

== ENCOUNTER → 2019-10-22 | Outpatient (CLI) | payer MEDICARE ==
[~2019-10-22] MED LIST changes: -ACAR50TA PO; +ACAR50TA5 PO; +VITAMIN C WITH ZINC PO
== END | disposition home or self-care (01) ==
LOC: SHCH 07:40
PROVIDERS: ATTEND Internal Medicine Cardiovascular Disease
DX: I65.21 Occlusion and stenosis of right carotid artery (principal)
CPT/HCPCS: 93880

== ENCOUNTER → 2020-05-11 | Outpatient (CLI) | payer MEDICARE ==
[~2020-05-11] MED LIST changes: -ASPI-1181 PO; +ASPI-1443 PO
== END | disposition home or self-care (01) ==
LOC: RAH 08:27
PROVIDERS: ATTEND Internal Medicine Cardiovascular Disease
DX: I08.0 Rheumatic disorders of both mitral and aortic valves (principal); I25.10 Atherosclerotic heart disease of native coronary artery without angina pectoris
CPT/HCPCS: 93306; 93356